=== PATIENT | female | born 1995 | race Caucasian/White ===

== ENCOUNTER → 2017-12-02 | Outpatient (CLI) | payer OTHER ==
--- NOTE | 2017-12-02 17:45 | KCIC ---
WRIST 3V RIGHT History: . Right wrist pain ulnar side after blunt bone injury last night. Comparison: None are available No acute fracture or bone destruction. Joints and soft tissues appear intact. Impression: No acute radiographic abnormality Electronically signed by: Jeff Arroyo MD (12/02/2017 5:41 PM) [id number]
== END | disposition home or self-care (01) ==
LOC: KCIC 11:51
PROVIDERS: ATTEND Nurse Practitioner Family
DX: M25.531 Pain in right wrist (principal)
CPT/HCPCS: 73110